=== PATIENT | female | born 1995 | race Caucasian/White ===

== ENCOUNTER 2020-04-12 11:28 | Emergency (ER) | payer MEDICAID, SELFPAY ==
[2020-04-12 11:44] VITALS: BP 132/75; PULSE 94; RESP 20; TEMP 36.5; O2SAT 100
[2020-04-12 12:10] VITALS: BP 117/70; PULSE 80; RESP 20; O2SAT 100
[2020-04-12] MEDS: LACTATED RINGERS 1,000 ML 999 ML IV CONT (13:23)
[2020-04-12 13:28] LABS: Basophils Percent Auto 0.3 % (0.2-1.2); Eosinophils Percent Auto 0.4 % (0-4.4); Hematocrit 30.3 % (37.0-47.0); Hemoglobin 10.3 g/dL (12.0-15.0); Immature Granulocyte Absolute 0.04 K/mm3 (0.00-0.031); Immature Granulocyte Percent A 0.4 % (0-0.5); Lymphocytes Absolute Auto 2.31 K/mm3 (0.9-3.2); Lymphocytes Percent Auto 23.8 % (18.3-44.2); Mean Corpuscular Hemoglobin 29.3 pg (26-34); Mean Corpuscular Volume 86.3 fl (80-100); Mean Platelet Volume 9.7 fl (7.4-10.4); Monocytes Absolute Auto 0.5 K/mm3 (0.1-0.6); Monocytes Percent Auto 5.1 % (2.6-8.5); Neutrophils Absolute Auto 6.8 K/mm3 (1.3-6.7); Platelet Count Result 300 k/mm3 (150-375); Red Blood Count 3.51 M/mm3 (4.2-5.4); Red Cell Distribution Width 12.9 % (11.5-14.5); White Blood Count 9.7 K/mm3 (4.5-10.0)
[2020-04-12 13:34] LABS: Add Urine Microscopic? YES; Appearance Urine Cloudy (Clear); Bacteria Urine 1+ /hpf; Bilirubin Urine Negative (Negative); Color Urine Yellow (Yellow); Glucose Urine UA Negative (Negative); Ketones Urine 1+ mg/dL (Negative); Leukocyte Esterase Ur 2+ LEU/UL (Negative); Mucus Urine Few /lpf; Nitrate Urine Negative (Negative); Protein Urine Negative (Negative); Specific Grav Ur 1.017 (1.001-1.035); Squamous Epithelial Cell Urine Many /hpf (Few); Urobilinogen Urine Negative mg/dL (<2.0)
--- NOTE | 2020-04-12 13:35 | ED.BACK ---
HPI - Back Pain/Injury General Chief Complaint: Back Pain/Injury Stated Complaint: severe back pain, 21 weeks preg Time Seen by Provider: 04/12/20 12:18 Source: patient Mode of arrival: ambulatory Limitations: no limitations History of Present Illness HPI Narrative: 25-year-old female Basically healthy except that she is a G2, P1 approximately [address] Friedman for care Complains of atraumatic diffuse back pain Patient says she had a little discomfort when she woke up this morning and took Tylenol and it improved and then she went to work and it got much worse In seems to be aggravated now by almost any movements or repositionings She says that both of her feet feel tingly and numb but not her legs She does not have weakness or bowel or bladder symptoms She does not have a fever hematuria or dysuria No vomiting or diarrhea MD elicited complaint: back pain Related Data Home Medications Medication Instructions Recorded Confirmed No Home Medications 04/12/20 04/12/20 Allergies Allergy/AdvReac Type Severity Reaction Status Date / Time No Known Allergies Allergy Verified 04/12/20 12:12 Review of Systems Review of Systems: All systems reviewed & are unremarkable except as noted in HPI and below Constitutional: Constitutional: Denies fever(s), Denies headache(s) and Denies weakness Eyes: Eyes: Reports no additional eye complaints and Denies change in vision ENT: Denies headache(s), Denies nasal congestion and Denies sore throat Cardiovascular: Cardiovascular: Denies leg edema, Denies palpitations and Denies dyspnea Respiratory: Respiratory: Denies cough and Denies dyspnea Gastrointestinal: Gastrointestinal: Denies diarrhea and Denies vomiting Genitourinary: Genitourinary: Denies hematuria, Denies urinary frequency, Denies dysuria and Reports flank pain Musculoskeletal: Musculoskeletal: Reports back pain, Reports myalgias, Denies deformity, Denies arthralgias, Denies joint swelling, Denies muscle weakness and Denies numbness Integumentary/Breasts: Skin/Breast: Denies rash and Denies wounds Neurologic: Denies headache(s), Denies focal weakness and Reports numbness Psychiatric: Psychiatric: Reports no additional psychiatric complaints Endocrine: Endocrine: Denies fatigue and Denies palpitations Hematologic/Lymphatic: Hematologic/Lymphatic: Denies easy bleeding and Denies easy bruising Allergic/Immunologic: Allergic/Immunologic: Denies wheezing PMFSH Social History Social History Gender identity (if verbalized by the patient): Female Exam Const: General: healthy appearing and alert Orientation/consciousness: patient oriented x3 Limitations: no limitations HENMT: Head: normal to inspection, no contusions and no hematomas Ears: external ears normal General nose exam: No nasal discharge present and no epistaxis Face and sinus: face symmetric Eyes: Conjunctivae: conjunctivae normal Sclera: sclerae normal EOM: EOMs intact bilaterally Neck: Neck: normal visual inspection, no lymphadenopathy, no meningeal signs, supple and no JVD Other: Neck is supple full range of motion Chest: Chest palpation & inspection: deferred Resp: Effort & Inspection: normal respiratory effort Auscultation: clear to auscultation bilaterally and other (BS =) Cardio: Rate: regular rate Rhythm: regular rhythm Heart sounds: no gallops GI: Inspection: normal to inspection GI Palp: Yes Soft to palpation and No Tenderness to palpation present (GI) Other: fundus palpable just above umbilicus, consistent with stated dates : General: Yes CVA tenderness bilateral Back/Spine/Pelvis: Thoracic/Lumbar Spine: thoracic and lumbar spine normal to inspection Other: She has diffuse tenderness, both in the midline and in the paraspinous muscles, does seem to be the most pronounced in the area of the CVA bilaterally Skin: General skin exam: normal color and no rashes or lesions noted Rash
[2020-04-12 13:37] LABS: Acetaminophen < 10 ug/mL (10-30)
[2020-04-12 13:40] LABS: Anion Gap 6 mmol/L (8-16); Blood Urea Nitrogen 7 mg/dL (7-17); CRP 1.1 mg/dL (<1.0); Calcium 8.9 mg/dL (8.4-10.2); Carbon Dioxide 21 mmol/L (22-30); Chloride 108 mmol/L (98-107); Creatine Kinase < 20 U/L (30-135); Estimated CRCL calculation 178 ml/min; Estimated Glomerular Filt Rate > 60; Glucose 71 mg/dL (65-105); Potassium 3.8 mmol/L (3.4-5.0); Sodium 135 mmol/L (137-145)
[2020-04-12 13:44] LABS: Blood Urine Negative (Negative)
[2020-04-12 13:46] VITALS: BP 117/70; PULSE 72; RESP 20; O2SAT 100
[2020-04-12] MEDS: ACETAMINOPHEN 500 MG TABLET 1000 MG PO (15:01)
[2020-04-12 15:05] VITALS: BP 112/66; PULSE 90; RESP 20; O2SAT 100
[2020-04-12 15:58] VITALS: BP 112/66; PULSE 90; RESP 20; O2SAT 99
== END 2020-04-12 15:59 | disposition home or self-care (01) ==
PROVIDERS: Emergency Provider Emergency Medicine; PCP Family Medicine
DX: O99.891 Other specified diseases and conditions complicating pregnancy (principal); M54.16 Radiculopathy, lumbar region; Z3A.21 21 weeks gestation of pregnancy
CPT/HCPCS: 36415; 80048; 80307; 81001; 82550; 85025; 86140; 87086; 87088; 96360; 99283; A9270; J7120

== ENCOUNTER 2020-06-01 16:09 | Outpatient (CLI) | payer BC, SELFPAY ==
[2020-06-01] VITALS (12 sets, daily range): BP systolic 100–120; BP diastolic 58–60; PULSE 77–85; O2SAT 98–100
[2020-06-01 17:01] LABS: Basophils Percent Auto 0.3 % (0.2-1.2); Eosinophils Absolute Auto 0.1 K/mm3 (0-0.3); Eosinophils Percent Auto 0.8 % (0-4.4); Hematocrit 29.6 % (37.0-47.0); Hemoglobin 9.9 g/dL (12.0-15.0); Immature Granulocyte Absolute 0.08 K/mm3 (0.00-0.031); Immature Granulocyte Percent A 0.7 % (0-0.5); Lymphocytes Absolute Auto 2.82 K/mm3 (0.9-3.2); Mean Corpuscular HGB Conc 33.4 g/dl (32-36); Mean Corpuscular Hemoglobin 28.3 pg (26-34); Mean Corpuscular Volume 84.6 fl (80-100); Mean Platelet Volume 9.6 fl (7.4-10.4); Monocytes Absolute Auto 0.8 K/mm3 (0.1-0.6); Monocytes Percent Auto 6.9 % (2.6-8.5); Neutrophils Absolute Auto 7.9 K/mm3 (1.3-6.7); Neutrophils Percent Auto 67.3 % (45.5-73.1); Platelet Count Result 317 k/mm3 (150-375); Red Cell Distribution Width 12.6 % (11.5-14.5); White Blood Count 11.8 K/mm3 (4.5-10.0)
[2020-06-01 17:11] LABS: Add Urine Microscopic? YES; Appearance Urine Cloudy (Clear); Bacteria Urine 1+ /hpf; Bilirubin Urine Negative (Negative); Blood Urine Negative (Negative); Color Urine Yellow (Yellow); Glucose Urine UA 1+ mg/dL (Negative); Ketones Urine Negative (Negative); Leukocyte Esterase Ur Negative LEU/UL (NEGATIVE); Mucus Urine Rare /lpf; Nitrate Urine Negative (Negative); Protein Urine Negative (Negative); Specific Grav Ur 1.011 (1.001-1.035); Squamous Epithelial Cell Urine Many /hpf (Few); Urobilinogen Urine Negative mg/dL (<2.0); WBC Urine 0-3 /hpf (0-3)
[2020-06-01 17:13] LABS: Alanine Aminotransferase 15 U/L (4-35); Albumin Level 3.6 g/dL (3.5-5.1); Alkaline Phosphatase 87 U/L (38-126); Anion Gap 8 mmol/L (8-16); Aspartate Amino Transferase 19 U/L (14-36); Bilirubin,Total 0.5 mg/dL (0.2-1.3); Blood Urea Nitrogen 7 mg/dL (7-17); Carbon Dioxide 21 mmol/L (22-30); Chloride 105 mmol/L (98-107); Estimated Glomerular Filt Rate > 60; Glucose 79 mg/dL (65-105); Potassium 3.8 mmol/L (3.4-5.0); Sodium 134 mmol/L (137-145); Uric Acid 2.9 mg/dL (2.5-7.5)
[2020-06-01 17:14] LABS: Creatinine Urine 54.7 mg/dL; Total Protein Urine Random 16 mg/dL; Ur Ttl Prot Creatinine Ratio 0.29 mg/mg (0-0.20)
== END 2020-06-01 17:58 | disposition home or self-care (01) ==
LOC: ANHOBOP 16:16 → ANHOBPP 16:20
PROVIDERS: PCP Family Medicine; Visit Provider Obstetrics & Gynecology
DX: O13.9 Gestational [pregnancy-induced] hypertension without significant proteinuria, unspecified trimester (principal); Z3A.00 Weeks of gestation of pregnancy not specified
CPT/HCPCS: 36415; 59025; 80053; 81001; 82570; 84156; 84550; 85025; 87086; 99199

== ENCOUNTER 2020-07-20 21:27 | Emergency (ER) | payer SELFPAY ==
--- NOTE | 2020-07-20 21:28 | ECG_ITS ---
Measurements Intervals [place] Rate: 95 P: -7 MI: 133 QRS: -6 QRSD: 93 T: 14 QT: 345 QTc: 435 Interpretive Statements SINUS RHYTHM DELAYED PRECORDIAL R/S TRANSITION VOLTAGE CRITERIA FOR LVH MINIMAL Q WAVES- HIGH LATERAL LEADS BORDERLINE T WAVE ABNORMALITY- ANT/INF LEADS BORDERLINE ECG Electronically Signed On 07-21-2020 7:07:31 CDT by Magno Akbar D.O.
[2020-07-20 21:39] VITALS: BP 107/64; PULSE 98; RESP 18; TEMP 36.3; O2SAT 100
[2020-07-20 22:07] LABS: Basophils Absolute Auto 0.1 K/mm3 (0.0-0.1); Basophils Percent Auto 0.4 % (0.2-1.2); Eosinophils Absolute Auto 0.1 K/mm3 (0-0.3); Eosinophils Percent Auto 0.7 % (0-4.4); Hematocrit 31.6 % (37.0-47.0); Hemoglobin 10.6 g/dL (12.0-15.0); Immature Granulocyte Absolute 0.11 K/mm3 (0.00-0.031); Immature Granulocyte Percent A 0.9 % (0-0.5); Lymphocytes Absolute Auto 2.63 K/mm3 (0.9-3.2); Lymphocytes Percent Auto 21.2 % (18.3-44.2); Mean Corpuscular HGB Conc 33.5 g/dl (32-36); Mean Corpuscular Hemoglobin 29.2 pg (26-34); Mean Corpuscular Volume 87.1 fl (80-100); Mean Platelet Volume 9.6 fl (7.4-10.4); Monocytes Absolute Auto 0.8 K/mm3 (0.1-0.6); Monocytes Percent Auto 6.8 % (2.6-8.5); Neutrophils Absolute Auto 8.7 K/mm3 (1.3-6.7); Platelet Count Result 268 k/mm3 (150-375); Red Blood Count 3.63 M/mm3 (4.2-5.4); Red Cell Distribution Width 14.8 % (11.5-14.5); White Blood Count 12.4 K/mm3 (4.5-10.0)
[2020-07-20 22:17] LABS: INR 0.9
[2020-07-20 22:18] LABS: Partial Thromboplastin Time 23.6 SECONDS (22.3-36.8)
[2020-07-20 22:19] LABS: Anion Gap 10 mmol/L (8-16); Blood Urea Nitrogen 5 mg/dL (7-17); Calcium 9.3 mg/dL (8.4-10.2); Carbon Dioxide 19 mmol/L (22-30); Chloride 106 mmol/L (98-107); Estimated CRCL calculation 169 ml/min; Estimated Glomerular Filt Rate > 60; Glucose 110 mg/dL (65-105); Potassium 3.3 mmol/L (3.4-5.0); Sodium 135 mmol/L (137-145)
[2020-07-20 22:31] LABS: Troponin I < 0.012 ng/mL (0.000-0.034)
[2020-07-20 22:45] VITALS: BP 114/68; PULSE 94; RESP 19; O2SAT 100
[2020-07-20 22:51] VITALS: PULSE 96; O2SAT 99
--- NOTE | 2020-07-20 23:05 | ED.CHESTPAIN ---
HPI - Chest Pain General Chief Complaint: Chest Pain Stated Complaint: headache, sob, chest discomfort Time Seen by Provider: 07/20/20 22:50 Source: patient Mode of arrival: wheelchair Limitations: no limitations History of Present Illness HPI narrative: 25-year-old 1 para 0 35 weeks of gestation here with complaints of upper abdominal and lower chest pain. Patient states that this evening she was having headache followed by chest pain. She called her OB who recommended her to go to the ER. Patient states that she went to L&D had NST done which was normal she was later referred here to the ER. Patient presently states that her pressure is much better. She denies any shortness of breath, nausea or vomiting. MD complaint: chest heaviness Timing of current episode: now resolved Pain location: subxiphoid Pain radiation: none Related Data Allergies Allergy/AdvReac Type Severity Reaction Status Date / Time adhesive tape Allergy Mild Rash Verified 07/20/20 22:48 Review of Systems Review of Systems: All systems reviewed & are unremarkable except as noted in HPI and below Constitutional: Constitutional: Reports no additional constitutional complaints Eyes: Eyes: Reports no additional eye complaints ENT: Reports system reviewed and no additional complaints, except as documented Cardiovascular: Cardiovascular: Reports as per HPI Respiratory: Respiratory: Reports as per HPI Gastrointestinal: Gastrointestinal: Reports no additional gastrointestinal complaints Musculoskeletal: Musculoskeletal: Reports no additional musculoskeletal complaints Integumentary/Breasts: Skin/Breast: Reports system reviewed and no additional complaints, except as docu Neurologic: Reports system reviewed and no additional complaints, except as documented PMFSH Past Medical History Medical History Anxiety Back injury Depression GERD (gastroesophageal reflux disease) Kidney stones Pilonidal cyst UTI (urinary tract infection) Surgical History Surgical History No history of previous surgery Family History Family History Mother Family history of diabetes mellitus in first degree relative Social History Social History Smoking status: Never smoker Alcohol intake: never Gender identity (if verbalized by the patient): Female Exam Narrative: Exam Narrative: GENERAL: Well-appearing, well-nourished, and in no acute distress. HEAD: Normocephalic, atraumatic. EYES: PERRLA and EOMI. NECK: Supple. CHEST: Clear to auscultation. No respiratory distress. HEART: Regular rate and rhythm. No murmur heard. Normal peripheral pulses. ABDOMEN: Gravid abdomen EXTREMITIES: Normal range of motion. No edema. SKIN: Warm, dry, no rash. NEURO: No focal deficits. Alert and oriented x3. PSYCH: Normal mood and affect. Course Course Emergency Course: Patient states upon arrival to ER her symptoms have much resolved. I have reviewed her lab work and EKG findings. Pain is atypical. I advised her to rest, follow-up with her primary doctor and OB. Patient states that she feels comfortable going home. Vital Signs Vital signs: Vital Signs Temperature 36.3 C L 07/20/20 21:39 Pulse Rate 98 07/20/20 21:39 Respiratory Rate 18 07/20/20 21:39 Blood Pressure 107/64 07/20/20 21:39 Pulse Oximetry 100 07/20/20 21:39 Temperature 36.3 C L 07/20/20 21:39 Pulse Rate 96 07/20/20 22:51 Respiratory Rate 19 07/20/20 22:45 Blood Pressure 114/68 07/20/20 22:45 Pulse Oximetry 99 07/20/20 22:51 MDM - Chest Pain Lab Data Result diagrams: 07/20/20 21:52 07/20/20 21:52 Labs: Lab Results 07/20/20 07/20/20 07/20/20 Range/Units 21:52 21:52 21:52 WBC 12.4 H (4.5-10.0) K/mm3 RBC 3.63
[2020-07-20 23:17] VITALS: BP 114/78; PULSE 79; RESP 18; TEMP 36.2; O2SAT 98
== END 2020-07-20 23:18 | disposition home or self-care (01) ==
PROVIDERS: Emergency Provider Family Medicine; PCP Family Medicine
DX: O26.893 Other specified pregnancy related conditions, third trimester (principal); R07.89 Other chest pain; Z3A.35 35 weeks gestation of pregnancy; R94.31 Abnormal electrocardiogram [ECG] [EKG]
CPT/HCPCS: 36415; 80048; 84484; 85025; 85610; 85730; 93005; 99284

== ENCOUNTER 2020-07-28 15:35 | Outpatient (RCR) | payer BC, SELFPAY ==
[2020-07-28 16:39] VITALS: BP 111/65; PULSE 90
== END 2020-08-19 07:43 | disposition home or self-care (01) ==
LOC: ANHOBOP 15:35
PROVIDERS: PCP Family Medicine; Visit Provider Obstetrics & Gynecology
DX: P00 Newborn affected by maternal conditions that may be unrelated to present pregnancy (principal); Z3A.36 36 weeks gestation of pregnancy
CPT/HCPCS: 59025

== ENCOUNTER 2020-08-18 08:24 | Inpatient (IN) | payer BC, SELFPAY ==
--- NOTE | 2020-08-04 13:45 | PC.NURSE ---
PATIENT STATES SHE HAS A SISTER WHO IS RECOVERING DRUG ADDICT--
[2020-08-18] VITALS (65 sets, daily range): BP systolic 102–126; BP diastolic 56–91; PULSE 56–95; RESP 14–19; TEMP 36.1–36.4; O2SAT 63–100
--- OUTSIDE RECORDS SUMMARY | 2020-08-18 08:31 | XMS_ITS | Encounter Summary ---
:1995 Author Reason for Visit return OB visit Assessment and Plan 1. Routine care Discussion Note: None recorded.Patient educational handouts: No information available. Plan of Care Reminders Provider Appointments None ? ? recorded. Lab None ? ? recorded. Referral None ? ? recorded. Procedures None ? ? recorded. Surgeries None ? ? recorded. Imaging None ? ? recorded. Medications Name Start Date ? ? [employer] COVID-19 Vaccine (PF) 30 mcg/0.3 mL IM suspension(EUA) ? ADMINISTER 0.3ML IN THE MUSCLE DIRECTED sertraline 50 mg tablet ? Take 1 tablet every day by oral route for 60 days. Notes: prenantal gummies -nm Medications Administered None recorded. Vitals Height Weight Blood Pressure 5 ft 4 in 247 lbs 116/62 mm[Hg] Results Lab Results None recorded. Allergies Code Code System Name Reaction Severity Onset NKDA ? ? ? Problems Name Status Onset Date Source ? Active 02/17/2020 History Procedures Date Name Performed by ? 08/15/2019 Colonoscopy Infor
--- OUTSIDE RECORDS SUMMARY | 2020-08-18 08:31 | XMS_ITS | Encounter Summary ---
:1995 Author Reason for Visit return OB visit Assessment and Plan 1. Routine care ? section (SURG) Discussion Note: None recorded.Patient educational handouts: No information available. Plan of Care Reminders Provider Appointments None ? ? recorded. Lab None ? ? recorded. Referral None ? ? recorded. Procedures None ? ? recorded. Surgeries [facility] Section (SURG) 08/18/2020 (Admitting) Imaging None ? ? recorded. Medications Name Start Date ? ? [employer] COVID-19 Vaccine (PF) 30 mcg/0.3 mL IM suspension(EUA) ? ADMINISTER 0.3ML IN THE MUSCLE DIRECTED sertraline 50 mg tablet ? Take 1 tablet every day by oral route for 60 days. Notes: prenantal gummies -nm Medications Administered None recorded. Vitals Height Weight Blood Pressure 5 ft 4 in 247 lbs 118/60 mm[Hg] Results Lab Results None recorded. Allergies Code Code System Name Reaction Severity Onset NKDA ? ? ? Problems Name Status Onset Date Source ? Active 02/17/2020 History Procedures Date
--- OUTSIDE RECORDS SUMMARY | 2020-08-18 08:31 | XMS_ITS | Encounter Summary ---
:1995 Author Reason for Visit return OB visit Assessment and Plan 1. Routine care ? streptococcus group B, cul ture, unspecified specimen Discussion Note: None recorded.Patient educational handouts: No information available. Plan of Care Reminders Provider Appointments None recorded. ? ? Lab Streptococcus [facility] Group B, Culture, 07/21/2020 [facility] Unspecified Specimen Referral None recorded. ? ? Procedures None recorded. ? ? Surgeries None recorded. ? ? Imaging None recorded. ? ? Medications Name Start Date ? ? [employer] COVID-19 Vaccine (PF) 30 mcg/0.3 mL IM suspension(EUA) ? ADMINISTER 0.3ML IN THE MUSCLE DIRECTED sertraline 50 mg tablet ? Take 1 tablet every day by oral route for 60 days. Notes: prenantal gummies -nm Medications Administered None recorded. Vitals Height Weight Blood Pressure 5 ft 4 in 242 lbs 118/66 mm[Hg] Results Lab Results Date Name Specimen Result Interpretation Description Value Range Status Address ? 07/21/2020 Streptococcus SOURCE NOT ? Strep Gp negative neg ative Final [facility]: Group B, INDICATED B [id number] Culture, NEGRA+rflx [place] Unspecified
--- OUTSIDE RECORDS SUMMARY | 2020-08-18 08:31 | XMS_ITS | Encounter Summary ---
[...] recorded. Medications Name Start Date ? ? [employer] COVID-19 Vaccine (PF) 30 mcg/0.3 mL IM suspension(EUA) ? ADMINISTER 0.3ML IN THE MUSCLE DIRECTED sertraline 50 mg tablet ? Take 1 tablet every day by oral route for 60 days. Notes: prenantal gummies -nm Medications Administered None recorded. Vitals Height Weight Blood Pressure 5 ft 4 in 244 lbs 112/62 mm[Hg] Results Lab Results None recorded. Allergies Code Code System Name Reaction Severity Onset NKDA ? ? ? Problems Name Status Onset Date Source ? Active 02/17/2020 History Procedures Date Name Performed by ? 08/15/2019 Colonoscopy Infor
--- OUTSIDE RECORDS SUMMARY | 2020-08-18 08:31 | XMS_ITS | Encounter Summary ---
[...] recorded. Medications Name Start Date ? ? [employer] COVID-19 Vaccine (PF) 30 mcg/0.3 mL IM suspension(EUA) ? ADMINISTER 0.3ML IN THE MUSCLE DIRECTED sertraline 50 mg tablet ? Take 1 tablet every day by oral route for 60 days. Notes: prenantal gummies -nm Medications Administered None recorded. Vitals Height Weight Blood Pressure 5 ft 4 in 232 lbs 120/64 mm[Hg] Results Lab Results None recorded. Allergies Code Code System Name Reaction Severity Onset NKDA ? ? ? Problems Name Status Onset Date Source ? Active 02/17/2020 History Procedures Date Name Performed by ? 08/15/2019 Colonoscopy Infor
--- OUTSIDE RECORDS SUMMARY | 2020-08-18 08:31 | XMS_ITS | Encounter Summary ---
:1995 Author Reason for Visit return OB visit Assessment and Plan 1. Routine care ? Zoloft 50 mg tablet Discussion Note: None recorded.Patient educational handouts: No information available. Plan of Care Reminders Provider Appointments None ? ? recorded. Lab None ? ? recorded. Referral None ? ? recorded. Procedures None ? ? recorded. Surgeries None ? ? recorded. Imaging None ? ? recorded. Medications Name Start Date ? ? [employer] COVID-19 Vaccine (PF) 30 mcg/0.3 mL IM suspension(EUA) ? ADMINISTER 0.3ML IN THE MUSCLE DIRECTED sertraline 50 mg tablet ? Take 1 tablet every day by oral route for 60 days. Notes: prenantal gummies -nm Medications Administered None recorded. Vitals Height Weight Blood Pressure 5 ft 4 in 235 lbs 122/70 mm[Hg] Results Lab Results None recorded. Allergies Code Code System Name Reaction Severity Onset NKDA ? ? ? Problems Name Status Onset Date Source ? Active 02/17/2020 History Procedures Date Name Performed by ?
--- OUTSIDE RECORDS SUMMARY | 2020-08-18 08:31 | XMS_ITS ---
:1995 Author Care Team Providers Name Role Phone [facility] Primary Care Provider Unavailable Allergies Code Code System Name Reaction Severity Status Onset NKDA ? Medications Name Status Start Date Stop Date ? ? amoxicillin 500 mg capsule Completed ? 08/07 amoxicillin 875 mg-potassium clavulanate 125 mg tablet Completed ? 08/13/2019 TAKE 1 TABLET BY MOUTH EVERY 12 HOURS FOR 14 DAYS buspirone 5 mg tablet Completed 08/26/2016 08/13/2019 Take by oral route. buspirone 7.5 mg tablet Completed ? 02/04/20 20 TAKE 1 TABLET BY MOUTH THREE TIMES DAILY NEEDED fluconazole 150 mg tablet Completed ? 2018 fluticasone propionate 50 mcg/actuation nasal spray,suspension C ompleted ? 08/13/2019 USE 2 SPRAY(S) IN EACH NOSTRIL ONCE DAILY [employer] COVID-19 Active ? Not jagruti ilable Vaccine (PF) 30 mcg/0.3 mL IM suspension(EUA) pyridoxine (vitamin B6) 25 mg tablet Completed ? 05/19/2020 Take 1 tablet 3 times a day by oral route. sertraline 50 mg tablet Active ? Not avai lable silver sulfadiazine 1 % topical cream Completed ? 07/26/2016 APPLY TO AFFECTED AREA TWICE A DAY UNTIL SYMPTOMS HAVE IMPROVED Suprep Bowel Prep Kit 17.5 gram-3.13 gram-1.6 gram oral solution Active ? Not available TAKE 177ML BY MOUTH EVERY 12 HOURS DIRECTED IN THE INSTRUCTI ONS Unisom (doxylamine) 25 mg tablet Completed ? 05/19/2020 Take 0.5 tablets every day by oral route at bedtime. Xulane 150 mcg-35 mcg/24 hr transdermal patch Active ? Not available APPLY 1 PATCH TOPICALLY ONCE A WEEK
--- OUTSIDE RECORDS SUMMARY | 2020-08-18 08:31 | XMS_ITS | Encounter Summary ---
:1995 Author Reason for Visit return OB visit Assessment and Plan 1. Routine care ? glucose tolerance test, ge stational, 1-hour - 1 hr non fasting OB ? HIV 1+2 Ab + HIV1 p24 Ag, quantitative immunoassay, serum ? hemoglobin + hematocrit, b lood ? antibody screen, serum or plasma ? rubella igg Ab screen, ser um Discussion Note: None recorded.Patient educational handouts: No information available. Plan of Care Reminders Provider Appointments None recorded. ? ? Lab Glucose [facility] Tolerance Test, 05/19/2020 [facility] Gestational, 1-Hour ? HIV 1+2 Ab + [facility] HIV1 P24 Ag, Quantitative 05/19/2020 [facility] Immunoassay, Serum ? Hemoglobin + [facility] Hematocrit, Blood 05/19/2020 [facility] ? Antibody [facility] Screen, Serum or Plasma 05/19/2020 [facility] ? Rubella Igg Ab [facility] Screen, Serum 05/19/2020 [facility] Referral None recorded. ? ? Procedures None recorded. ? ? Surgeries None recorded. ? ? Imaging None recorded.
--- NOTE | 2020-08-18 09:06 | WPDHPUPDATE1 ---
History and Physical Update Update Date/Time: 08/18/20 09:06 History and Physical has been reviewed, including an updated exam of the patient. There are NO changes in the patient's condition. Risks, benefits, and alternatives have been discussed and questions answered. Patient agrees to proceed with procedure.
--- NOTE | 2020-08-18 09:06 | PM.IMHP ---
H&P: HPI History of Present Illness Date/Time: 08/18/20 09:06 25-year-old 1 patient presents at 39 weeks gestation. She has had a baby that has been measuring large throughout the and on ultrasound last week was 4200 g. We discussed mode of delivery risks and benefits and she states she desires to proceed with primary delivery. Presents today for this procedure. Chief Complaint: with macrosomia Review of Systems Review of Systems: All systems reviewed & are unremarkable except as noted in HPI and below PMFSH Family History Family History Father H/O heart artery stent FH: CABG (coronary artery bypass surgery) Hypertension Heart disease Grandparent Pancreatic adenocarcinoma Diabetes mellitus Alcohol abuse Liver cancer Heart disease Acute myocardial infarction Mother Hypothyroidism Social History Social History Substance use: never Gender identity (if verbalized by the patient): Female Spiritual care concerns: No Meds Home Medications and Allergies Home Medications Medication Instructions Recorded Confirmed Type docusate sodium [Colace] 100 mg PO TID 08/04/20 08/04/20 History ferrous sulfate 325 mg PO TID 08/04/20 08/04/20 History prenat.vits,rupinder,ptz-yryh-xiwwd 1 tablet PO DAILY 08/04/20 08/04/20 History [ #2] sertraline 25 mg PO DAILY 08/04/20 08/04/20 History Allergies Allergy/AdvReac Type Severity Reaction Status Date / Time No Known Allergies Allergy Verified 08/04/20 13:17 Exam Const: General: cooperative and healthy appearing Resp: Effort & Inspection: normal respiratory effort Auscultation: clear to auscultation bilaterally Cardio: Rate: regular rate Rhythm: regular rhythm GI: Inspection: normal to inspection Auscultation: normal bowel sounds : Bimanual exam- vagina & uterus: enlarged ( Fundal height 42cm heart tones 140) Manual OB Exam: Deferred manual OB exam Assessment and Plan Assessment and plan (1) 39 weeks gestation of : Code(s): Z3A.39 - 39 weeks gestation of Status: Acute (2) Macrosomia: Code(s): P08.0 - Exceptionally large baby Status: Acute Additional Plan after risks and benefits were discussed of vaginal delivery versus delivery patient desires to proceed with primary delivery.
--- NOTE | 2020-08-18 09:31 | WPDANESEPPF ---
Anes - Initial Pre Proc Eval Procedure: Operation Date: 08/18/20 10:30 Proposed Procedures p Primary Section - Emerson Friedman MD Date/Time: 08/18/20 09:31 Surgeon: Emerson Friedman MD Pre Op Diagnosis: C Sections Patient Data Age: 25 Gender: F Height: Weight: 112 kg Last Vital Signs Pulse 90 08/18/20 09:16 BP 117/67 08/18/20 09:16 Allergies Allergy/AdvReac Type Severity Reaction Status Date / Time No Known Allergies Allergy Verified 08/04/20 13:17 Home Medications Medication Instructions Recorded Confirmed Type docusate sodium [Colace] 100 mg PO TID 08/04/20 08/04/20 History ferrous sulfate 325 mg PO TID 08/04/20 08/04/20 History prenat.vits,rupinder,pnt-[id number] 1 tablet PO DAILY 08/04/20 08/04/20 History [ #2] sertraline 25 mg PO DAILY 08/04/20 08/04/20 History Patient hx anesthesia problems: none Family hx anesthesia problems: none PMFSH Past Medical History Medical History (Updated 08/18/20 @ 09:32 by Jaya Yanez DO) ADD (attention deficit disorder) Anemia Anxiety Depression Family History Family History Father H/O heart artery stent FH: CABG (coronary artery bypass surgery) Hypertension Heart disease Grandparent Pancreatic adenocarcinoma Diabetes mellitus Alcohol abuse Liver cancer Heart disease Acute myocardial infarction Mother Hypothyroidism Social History Social History Smoking status: Never smoker Substance use: never Gender identity (if verbalized by the patient): Female Spiritual care concerns: No Anes - Eval Final PreProcedure Day of Procedure 08/18/20 09:31 Patient weight: overweight Heart: regular rate and rhythm Lungs: clear to auscultation and normal air movement Airway: Mallampati scale class II Neurological: alert and oriented Last oral intake: >/= 8 hours ASA classification: III Emergent: no Anesthetic plan: proceed Anesthesia type and monitoring: regional spinal and standard monitoring Informed Consent: The patient's anesthetic plan and its attendant risks and benefits were discussed with the patient/family/POA. Questions were solicited and answers provided to the satisfaction of the patient/family/POA.
[2020-08-18 09:51] LABS: Basophils Percent Auto 0.4 % (0.2-1.2); Eosinophils Absolute Auto 0.1 K/mm3 (0-0.3); Eosinophils Percent Auto 0.6 % (0-4.4); Hematocrit 32.2 % (37.0-47.0); Hemoglobin 10.8 g/dL (12.0-15.0); Immature Granulocyte Absolute 0.14 K/mm3 (0.00-0.031); Immature Granulocyte Percent A 1.3 % (0-0.5); Lymphocytes Absolute Auto 2.05 K/mm3 (0.9-3.2); Lymphocytes Percent Auto 18.7 % (18.3-44.2); Mean Corpuscular HGB Conc 33.5 g/dl (32-36); Mean Corpuscular Hemoglobin 29.3 pg (26-34); Mean Corpuscular Volume 87.3 fl (80-100); Mean Platelet Volume 9.3 fl (7.4-10.4); Monocytes Absolute Auto 0.7 K/mm3 (0.1-0.6); Monocytes Percent Auto 6.6 % (2.6-8.5); Neutrophils Absolute Auto 7.9 K/mm3 (1.3-6.7); Neutrophils Percent Auto 72.4 % (45.5-73.1); Platelet Count Result 249 k/mm3 (150-375); Red Blood Count 3.69 M/mm3 (4.2-5.4); Red Cell Distribution Width 13.9 % (11.5-14.5)
[2020-08-18] MEDS: LACTATED RINGERS 1,000 ML 125 ML IV CONT (09:53)
[2020-08-18 11:53] LABS: Rapid Plasma Reagin Non-Reactive (NonReactive)
--- NOTE | 2020-08-18 12:24 | PM.OBPRVD ---
OB - Delivery Note Procedure Procedure: Procedures Operation Date: 08/18/20 10:30 <No data on this case meets the specified criteria> Route of delivery: Indication for instrumentation: other (Macrosomia) Specimen: No Quantitative Blood Loss (ml): 555 Anesthesia type: Epidural Disposition: PACU Narrative: patient prepped and draped in usual manner for this procedure. Pfannenstiel incision was made which was then carried down to the fascia. Extended bilaterally the length of the skin incision line and superiorly and inferiorly dissected away from the rectus muscles. Peritoneum was readily entered bladder flap developed in the uterus scored with clear fluid noted. Vertex was delivered nuchal cord reduced. Rest of baby was delivered cord clamped and cut and placenta removed manually. Uterus was exteriorized cleared of membranes and clots and closed using 0 Monocryl in a 0 in a running interlocking manner with good approximation hemostasis noted. Uterus was turned to the abdomen gutters were cleared of serosanguineous fluid and clots and the fascia was approximated using 0 Vicryl suture from the left angle midline in the right angle to midline. Subcutaneous tissue was rendered hemostatic and 0 plain was used to approximate followed by nnamdi on the skin. At this point the procedure was considered terminated the patient was sent to recovery room in stable condition. [place] Baby Weeks of gestation at delivery: 39 Infant gender: Male Weight (pounds): 8 Weight (ounces): 5 score one minute: 8 score five minutes: 9
--- NOTE | 2020-08-18 12:27 | PM.OBPRVD ---
OB - Delivery Note Procedure Procedure: Procedures Operation Date: 08/18/20 10:30 <No data on this case meets the specified criteria> Anesthesia type: Epidural [place] Baby Weeks of gestation at delivery: 39 Infant gender: Male Weight (pounds): 8 Weight (ounces): 5 score one minute: 8 score five minutes: 9
--- NOTE | 2020-08-18 14:35 | PC.NURSE ---
Patient transferred to post room #[id number] via stretcher. Support person present. Oriented to unit, room, information board, rooming in, admission packet and security measures. Patient verbalizes understanding.
[2020-08-18] MEDS: KETOROLAC 30 MG/ML VIAL (*BKC) IV PUSH (16:33)
[2020-08-18] MEDS: DEXTROSE 5%/0.45% SOD CHL 1,000 ML 125 ML IV CONT (17:59)
[2020-08-18] MEDS: ONDANSETRON INJ 4 MG/2 ML VIAL IV PUSH (20:44)
[2020-08-19 02:25] VITALS: BP 109/60; PULSE 60; RESP 18; TEMP 36.9; O2SAT 98
[2020-08-19 04:49] VITALS: BP 112/69; PULSE 85; RESP 18; TEMP 36.9; O2SAT 99
[2020-08-19 05:41] LABS: Basophils Percent Auto 0.2 % (0.2-1.2); Eosinophils Percent Auto 0.1 % (0-4.4); Hematocrit 30.1 % (37.0-47.0); Immature Granulocyte Absolute 0.11 K/mm3 (0.00-0.031); Immature Granulocyte Percent A 0.7 % (0-0.5); Lymphocytes Absolute Auto 1.43 K/mm3 (0.9-3.2); Lymphocytes Percent Auto 9.5 % (18.3-44.2); Mean Corpuscular HGB Conc 33.2 g/dl (32-36); Mean Corpuscular Hemoglobin 29.3 pg (26-34); Mean Corpuscular Volume 88.3 fl (80-100); Mean Platelet Volume 10.1 fl (7.4-10.4); Monocytes Absolute Auto 0.8 K/mm3 (0.1-0.6); Monocytes Percent Auto 5.1 % (2.6-8.5); Neutrophils Absolute Auto 12.7 K/mm3 (1.3-6.7); Neutrophils Percent Auto 84.4 % (45.5-73.1); Platelet Count Result 230 k/mm3 (150-375); Red Blood Count 3.41 M/mm3 (4.2-5.4); Red Cell Distribution Width 13.8 % (11.5-14.5); White Blood Count 15.1 K/mm3 (4.5-10.0)
--- NOTE | 2020-08-19 07:23 | WPDANLDPN2 ---
Anes-Prog Note L&D Date/Time: 08/19/20 07:23 Comfortable throughout: section Neuraxial method: spinal Epidural/Spinal procedure site: clean & non-tender Neuro status: Neuro function grossly intact. Cardiovascular status: normal Respiratory status: normal Airway patency: baseline Mental status: baseline Post-Op hydration status: normal Vital Signs: Last Vital Signs Temp 36.9 C 08/19/20 04:49 Pulse 85 08/19/20 04:49 Resp 18 08/19/20 04:49 BP 112/69 08/19/20 04:49 Pulse Ox 99 08/19/20 04:49 Pain score (VAS): 02/22 I/O: Intake & Output 08/18/20 08/18/20 08/19/20 15:59 23:59 07:59 Intake Total 3552 881 1010 Output Total 184 394 5758 Balance 950 40 -500 Post-procedural complaints: pruritis mild, no treatment Patient feedback: Patient satisfied with anesthetic care.
--- NOTE | 2020-08-19 07:23 | WPDANLDNPN2 ---
Anes-Prog Note L&D-Neuraxial Date/Time: 08/19/20 07:23 Neuraxial medications: intrathecal PF morphine Opiod-related complaints: pruritis mild, no treatment Patient feedback: Patient satisfied with post-operative pain management.
[2020-08-19] MEDS: IBUPROFEN 600 MG TABLET PO ×2 (08:38→15:04)
[2020-08-19] MEDS: DOCUSATE SODIUM 100 MG CAPSULE PO ×2 (08:38→15:04)
[2020-08-19] MEDS: MULTIVIT/MIN/PREN/FOL AC/IRON TABLET 1 TAB PO (08:38)
[2020-08-19 09:25] VITALS: BP 111/60; PULSE 95; RESP 16; TEMP 36.9; O2SAT 100
[2020-08-19 12:10] VITALS: BP 110/62; PULSE 94; RESP 18; TEMP 36.7; O2SAT 100
--- NOTE | 2020-08-19 12:48 | PC.NURSE ---
Consulted with patient, reviewed feeding cues, frequencies, duration of feedings, feeding elimination flow sheet, and signs of adequate intake. Demonstrated stimulation techniques to wake for feeding. Assisted with infant to breast. Reviewed positioning/alignment, holding breast and asymmetrical latch on. was able to latch correctly. Infant nursed with long pauses and stimulation to continue to suck at breast, occasional swallowing noted. Reviewed signs of a correct latch, effective nursing and suck swallow ratio. According to mom infant was able to maintain latch with minimal discomfort to mother while I was out of the room. Nipple care reviewed. Educated mom on getting a deep latch for each breastfeed session and if unable to call out for help. Instructed mom to wake infant by 3 hours post the last feeding. Instructed mother to call out for RN assistance if she is unable to latch for feeding or she has discomfort with nursing. Instructed feeding should be initiated three hours from start of last feeding or if feeding cues are noted before. Mother voiced understanding of information shared.
[2020-08-19 20:00] VITALS: BP 118/71; PULSE 78; RESP 18; TEMP 36.6; O2SAT 100
[2020-08-19] MEDS: HYDROcodone/acetaminophen (*CRX) 10-325 MG TABLET 1 TAB PO (23:55)
[2020-08-20] MEDS: IBUPROFEN 600 MG TABLET PO ×3 (06:58→23:52)
[2020-08-20] MEDS: HYDROcodone/acetaminophen (*CRX) 10-325 MG TABLET 1 TAB PO ×2 (06:58→17:08)
[2020-08-20] MEDS: DOCUSATE SODIUM 100 MG CAPSULE PO ×2 (06:59→17:07)
[2020-08-20] MEDS: MULTIVIT/MIN/PREN/FOL AC/IRON TABLET 1 TAB PO (06:59)
[2020-08-20] MEDS: SIMETHICONE 80 MG TAB.CHEW PO ×2 (06:59→18:01)
[2020-08-20 07:00] VITALS: BP 128/73; PULSE 84; RESP 16; TEMP 36.8
--- NOTE | 2020-08-20 12:10 | PC.NURSE ---
Consult with pt., mother reports infant has fed frequently today and has not had a wet diaper for 12 hours. Mother reports infant is sleepy at breast with slight tenderness. has difficulties latching to left, right no issues Both nipples are reddened skin is intact. Mother has large round nipples. is able to move tongue freely past gum ridge, both lips flange. Mother has infant to breast in cradle with shallow latch, reporting tenderness with feeding. is sleepy at breast with long pausing. Reviewed infant feeding cues, frequencies, duration of feedings, feeding elimination flow sheet, and signs of adequate intake. Demonstrated stimulation techniques to wake for feeding. Assisted with infant to breast. Reviewed positioning/alignment in cross cradle, holding breast in ?U? hold and guided asymmetrical latch on. Infant able to latch correctly within a few attempts. has some difficulties drawing large nipple in deeply. nursed eagerly with steady draws and occasional swallowing followed with long pausing. Reviewed signs of a correct latch, effective nursing and suck swallow ratio. Infant would slip to shallow latch, mother reports tenderness. Demonstrated how to adjust latch more deeply while feeding. Suggested mother stimulate while feeding to increase stimulate, increase intake and to assist with maintaining deep latch. Mother reports she can feel change in latch and has no tenderness. Suggested mother stimulate while feeding to increase stimulate, increase intake and to assist with maintaining deep latch. Nipple care reviewed of lanolin after feedings, warm compresses as needed. Instructed mother to call out for RN assistance if she is unable to latch for feeding or she has discomfort with nursing. Instructed feeding should be initiated three hours from start of last feeding or if feeding cues are noted before. Mother voiced understanding of information shared
--- NOTE | 2020-08-20 14:00 | PC.NURSE ---
Breast pump provided due to mother's wishes. Instructions given on breast pump care and usage, pumping schedule, nipple care, and collection and storage of breast milk. Encouraged [id number], breast massage and manual expression to stimulate supply. Assessed patient for correct flange size, placement and draw. Patient verbalizes and demonstrates understanding of instructions.
--- NOTE | 2020-08-20 14:15 | PC.NURSE ---
Mother reports she wishes to supplement due to low urine output.
[2020-08-20 20:00] VITALS: BP 112/68; PULSE 73; RESP 16; TEMP 36.6; O2SAT 100
[2020-08-20] MEDS: HYDROcodone/acetaminophen (*CRX) 5-325 MG TABLET 1 TAB PO (23:52)
[2020-08-21] MEDS: HYDROcodone/acetaminophen (*CRX) 5-325 MG TABLET 1 TAB PO (05:34)
[2020-08-21 08:55] VITALS: BP 126/70; PULSE 79; RESP 18; TEMP 36.6; O2SAT 100
[2020-08-21] MEDS: DOCUSATE SODIUM 100 MG CAPSULE PO (08:55)
[2020-08-21] MEDS: SIMETHICONE 80 MG TAB.CHEW PO (10:20)
--- NOTE | 2020-08-21 12:00 | PC.NURSE ---
Patient and significant other instructed to view the discharge video Mother & Baby Care, The First Two Weeks online. Patient states they have not yet watched it but they know how to access it. Patient was given the opportunity and encouraged to ask questions. Patient verbalized understanding of information shared and has been given the mother/baby guide for home reference.
--- NOTE | 2020-08-24 07:19 | PM.OBDSVD ---
DS: Admitting Diagnosis Admitting Diagnosis Admitting Diagnosis: OB - DS: Summary OB Procedures : None OB Procedures Intrapartum: OB Procedures: : None Peripartum Data Procedures: Procedures Operation Date: 08/18/20 10:30 Actual Procedure Side Surgeon p Primary Section Emerson Friedman MD Time Spent with Patient Time attestation: Total time spent providing and/or coordinating discharge services: Discharge Plan Discharge Consulting providers: Jaya Yanez Discharging Clinician: Emerson Friedman Patient Disposition: Home, Self-Care Activity: as tolerated Diet: as tolerated Wound Care Instructions: incision open to air Discharge Instructions: Education: Mom and Baby Guide and Preeclampsia Handout Given to: Mother Follow-Up: Call your delivering provider's office for an appointment to be seen in: 3 weeks Mom and baby should come to the [facility] for the follow-up appointment. Appointment Date/Time: August 22, 2020 at 8:00 am What to expect at your follow-up visit: Physical Assessment Call [phone] if you are unable to keep your appointment time. BREAST CARE: * Wear a snug supportive bra. * For engorgement discomfort: Breast Feeding: * Apply warm moist washcloths * Express milk as needed to relieve engorgement * Wear loose clothing * For sore nipples: * Identify correct latch-on * Apply warm moist washcloths before and after nursing * Air dry nipples after nursing * May apply Lansinoh cream to nipples ABDOMINAL INCISION: (if applicable) * Allow incision to air dry * Do NOT use lotions for powders on your incision * When showering, allow soap and water to run over the incision, but do not wash incision EPISIOTOMY/PERINEAL CARE: * Until bleeding stops, use your antoine bottle after urinating * Change your pad frequently throughout the day * No tub baths until seen by your physician - You may shower ACTIVITY: * Rest as much as possible. * Do not exercise or lift anything heavier than your baby (such as laundry or other children.) * Avoid stairs or driving as much as possible. * Do not put anything into the vagina. No douching, tampons, or sexual activity until seen by physician. NOTIFY PHYSICIAN IF YOU HAVE ANY QUESTIONS OR IF ANY OF THE FOLLOWING SYMPTOMS OCCUR: * If your incision becomes red, swollen, or more painful than what you have experienced in the hospital. * If your vaginal bleeding becomes foul smelling. * If your vaginal bleeding becomes more heavy than a period or if your bleeding changes from pink to bright red. However, you may pass an occasional walnut-sized clot once or twice for the first week . * If you experience a sharp, shooting pain in you calves. * If you discover a hard, reddened area on your breast or if you experience flu-like symptoms. DIET: * Eat regular, well-balanced meals. * Drink plenty of fluids daily. If , drink to thirst. Stand Alone Forms: General Discharge Information Follow-up/Referrals: Emerson Friedman MD [Physician] - 3 Weeks Discharge Medications: New hydrocodone-acetaminophen 5-325 mg Tablet 1 tablet PO Q3H PRN (Reason: Moderate Pain (4-6)) Qty: 30 RF: 0 ibuprofen 600 mg Tablet 600 mg PO Q6H PRN (Reason: Cramping) Qty: 30 RF: 0 Continued amoxicillin-pot clavulanate [Augmentin] 875-125 mg tablet 1 tablet PO Q12H Qty: 28 RF: 0 diphenhydramine HCl [Benadryl] 25 mg capsule 25 - 50 mg PO QID PRN (Reason: congestion) Qty: 60 RF: 0 fluticasone propionate [Flonase Allergy Relief] 50 mcg/actuation spray,suspension 2 spray NASAL DAILY Qty: 18.2 RF: 0 pseudoephedrine HCl 60 mg tablet 60 mg PO Q4-6H PRN (Reason: nasal congestion) Qty: 30 RF: 0 prenat.vits,rupinder,[id number] Tablet 1 tablet PO DAILY RF: 0 ferrous sulfate 325 mg
--- NOTE | 2020-08-24 07:20 | PM.OBPNVD ---
OB - PN: Subj Subjective Date/time seen: 08/24/20 07:20 OB - PN: Obj Data Labs CBC & Chem 7: 08/19/20 03:41 OB - PN A/P Assessment and Plan (1) Postop check: Code(s): Z09 - Encounter for follow-up examination after completed treatment for conditions other than malignant neoplasm Status: Acute Assessment and Plan: POD 3 will be discharged. Tolerating ambulation/regular diet/pain meds ok. No c/o. Has been seen daily (Dr Alaniz first two POD) though unable to document due to computer issues. Time Spent With Patient Time: Total time spent is greater than 50% in coordination of care (as documented) at patient's floor/unit and/or counseling patient:
== END 2020-08-21 13:07 | disposition home or self-care (01) | DRG 788 ==
LOC: ANHOBPP 08:29 → ANHLDR 11:42 → ANHOB2 14:38
PROVIDERS: Admitting Provider Obstetrics & Gynecology; PCP Family Medicine; Visit Provider Obstetrics & Gynecology
PROC: 10D00Z1 Extraction of Products of Conception, Low, Open Approach (ICD-10-PCS; CPT 59514; principal; 2020-08-18 10:30)
DX: O36.63X0 Maternal care for excessive fetal growth, third trimester, not applicable or unspecified (principal); Z37.0 Single live birth; Z3A.39 39 weeks gestation of pregnancy; O99.02 Anemia complicating childbirth; D64.9 Anemia, unspecified; O99.344 Other mental disorders complicating childbirth; F41.9 Anxiety disorder, unspecified; F32.9 Major depressive disorder, single episode, unspecified; F98.8 Other specified behavioral and emotional disorders with onset usually occurring in childhood and adolescence
CPT/HCPCS: 36415; 85025; 86592; 86850; 86900; 86901; A9270; J0131; J1200; J1885; J2274; J2370; J2405; J2590; J7120